=== PATIENT | male | born 1995 | race Caucasian/White ===

== ENCOUNTER 2016-10-05 17:46 | Emergency (ER) | payer OTHER ==
[~2016-10-05] VITALS: Ht 182.9 cm; Wt 95.3 kg
[2016-10-05] MEDS ORDERED: PENI500T PO (18:30)
--- NOTE | 2016-10-05 18:31 | PHYS DOC ---
Past History Past Medical History: No Pertinent History Past Surgical History: No Surgical History Alcohol Use: Occasionally Drug Use: Marijuana Adult General Chief Complaint Chief Complaint: SORE THROAT HPI HPI Patient is a 21 age year old male who presents with dental pain. The patient has 1 day history of right lower dental pain. Denies fevers or chills, nausea or vomiting, trismus, jaw swelling. No medications taken at home. Previously healthy. Review of Systems Review of Systems Constitutional: Denies fever or chills HENT: Denies nasal congestion or sore throat, reports dental pain Respiratory: Denies cough or shortness of breath Cardiovascular: Denies chest pain GI: Denies abdominal pain, nausea, vomiting Musculoskeletal: Denies back pain Integument: Denies rash Neurologic: Denies headache Allergies Allergies Allergies Coded Allergies Type Severity Reaction Last Updated Verified No Known Drug Allergies 10/05/16 No Physical Exam Physical Exam Constitutional: Well developed, well nourished, no acute distress, non-toxic appearance. HENT: Normocephalic, atraumatic, bilateral external ears normal, oropharynx moist, nose normal. no obvious gingival erythema or abscess but patient has marked pain posterior to right mandibular wisdom tooth, no trismus or jaw swelling. Eyes: conjunctiva normal, no discharge. Neck: supple, no stridor. Cardiovascular: no edema. Lungs & Thorax: no respiratory distress. Abdomen: nondistended. Skin: no rash. Extremities: No deformity Neurologic: Alert and oriented X 3 Current Patient Data Vital Signs Vital Signs Date Time Temp Pulse Resp B/P (MAP) Pulse Ox O2 Delivery O2 Flow Rate FiO2 10/05/16 17:46 98.6 61 20 98 Room Air EKG EKG [] Radiology/Procedures Radiology/Procedures [] Course & Med Decision Making Course & Med Decision Making Pertinent Labs and Imaging studies reviewed. (See chart for details) The patient presents with dental pain. No obvious abscess at this time. He declines pain medication here. Recommend rest, PO hydration, tylenol/ibuprofen for pain or fever, given prescription for penicillin VK. Follow up with a dentist or oral surgeon in 2 days if not improving. Come back for fever, difficulty breathing or swallowing, or otherwise worsening condition. Discharged home in stable condition. [] Dragon Disclaimer Dragon Disclaimer This chart was dictated in whole or in part using Voice Recognition software in a busy, high-work load, and often noisy Emergency Department environment. It may contain unintended and wholly unrecognized errors or omissions. Departure Departure: Impression: Primary Impression: Dental infection Disposition: 01 HOME, SELF-CARE Condition: STABLE Referrals: KEZIA WARE APRN (PCP) Patient Instructions: Dental Pain, [id number] Additional Instructions: You were seen in the emergency department today for oral pain. This is likely early dental infection. Please take prescribed antibiotic. Use ice packs for pain & take tylenol or ibuprofen. Please follow up with a dentist or oral surgeon if not improving in 2 days, especially if new symptoms such as redness, swelling, fever. Come back for difficulty breathing or swallowing, or otherwise worsening condition. Scripts Penicillin V Potassium (PENICILLIN V POTASSIUM) 500 Mg Tablet 1 TAB PO QID, #28 TAB Prov: CHARLY MONTILLA MD 10/05/16 CHARLY MONTILLA MD Oct 05, 2016 18:31
[2016-10-05 18:43] VITALS: BP 120/56
== END 2016-10-05 18:40 | disposition home or self-care (01) ==
LOC: ER 17:46
DX: K04.7 Periapical abscess without sinus (principal); F12.10 Cannabis abuse, uncomplicated
CPT/HCPCS: 99283